=== PATIENT | female | born 1950 | race Caucasian/White ===

== ENCOUNTER → 2020-02-17 | Day surgery (SDC) | payer MEDICARE, BC ==
[~2020-02-17] MED LIST: Ketamine 200 MG/20 ML MDV IV ONE; Lactated Ringers 1,000 ML IV SCH; Propofol 200 MG/20 ML SDV IV ONE; fentaNYL 100 MCG/2 ML SDV IV ONE
[2020-02-17] MEDS: Lactated Ringers 1,000 ML IV SCH (07:59)
[2020-02-17 09:39] VITALS: BP 135/68; PULSE 59
--- NOTE | 2020-02-17 14:22 | OR ---
DATE OF OPERATION: 02/17/2020 PREOPERATIVE DIAGNOSIS: GASTROESOPHAGEAL REFLUX DISEASE WITH DYSPHAGIA. POSTOPERATIVE DIAGNOSIS: GASTROESOPHAGEAL REFLUX DISEASE WITH DYSPHAGIA. SURGEON: Jalen Sterling MD PROCEDURE: DIAGNOSTIC ESOPHAGOGASTRODUODENOSCOPY WITH BIOPSIES X1, TIKA. FORCEPS FUNDAL POLYP REMOVAL X2. ANESTHESIA: MAC. COMPLICATIONS: None. SPECIMEN: 1. Antral TIKA. 2. Antral biopsy x1. 3. Fundal polyps x2. FINDINGS: 1. Full-length EGD. 2. Numerous adenomatous polyps, fundus. 3. Small hiatal hernia with spontaneous GERD. 4. No distal esophagitis, stricturing, ulceration, or Tristan changes. 5. Small antral erosion. RECOMMENDATIONS: Medical followup with Sahra Raya PA-C, the patient's provider. INDICATIONS: The patient has been having some ongoing issues with reflux and occasionally some dysphagia in the lower chest. Elidia sent her for diagnostic EGD. DESCRIPTION OF PROCEDURE: The patient was prepped and draped, placed in a left lateral decubitus position. A lubricated Olympus gastroscope was inserted over a bit, advanced to cricopharyngeus and easily intubated into the esophagus. The esophageal lining was benign in its entire course. The Z-line was crisp and sharp at 35 cm. There was a small hiatal hernia present with spontaneous reflux, but no distal esophagitis, stricturing, ulceration, or Tristan changes. The scope was advanced into the stomach through the pylorus and into the second portion of the duodenum. This and the duodenal bulb were completely benign. The scope was brought back into the stomach and retroflexed. The upper fundus and cardia showed some adenomatous polyps. Otherwise, the only other abnormality was a small hiatal hernia seen from below. Upon straightening, the rest of the fundus had few more adenomatous polyps. The antrum had no obvious gastritis, but there was 1 small little erosion, likely associated with early polyp. I did do a biopsy and removed most of this in its entirety. A CLOtest was obtained. The scope was retroflexed and 2 of the adenomatous polyps were removed with forceps in their entirety. Air was then suctioned and scope removed without complication. LUIS/MICHAEL /[id number]
== END ==
LOC: CC.SDS 07:45
PROVIDERS: ATTEND Family Medicine
DX: K25.9 Gastric ulcer, unspecified as acute or chronic, without hemorrhage or perforation (principal); K31.7 Polyp of stomach and duodenum; K21.9 Gastro-esophageal reflux disease without esophagitis; K31.89 Other diseases of stomach and duodenum; J01.90 Acute sinusitis, unspecified; K44.9 Diaphragmatic hernia without obstruction or gangrene; Z88.7 Allergy status to serum and vaccine; Z88.8 Allergy status to other drugs, medicaments and biological substances
CPT/HCPCS: 43239; 87081; 88305; J2704; J3010; J7120

== ENCOUNTER 2024-04-21 06:04 | Day surgery (SDC) | payer MEDICARE, BC ==
[2024-04-21] MEDS ORDERED: Sodium Chloride 0.9% 10 ML Syringe FLUSH PRN (06:15)
[2024-04-21] MEDS: Cyclopentolate 1% Opth Soln 2 ML Bottle EYELF SCH (06:56)
[2024-04-21] MEDS: Tropicamide 1% Ophth Soln 3 ML Bottle EYELF SCH (07:01)
[2024-04-21] MEDS: Phenylephrine 2.5% Ophth Soln 2 ML Bot EYELF SCH (07:01)
[2024-04-21] MEDS ORDERED: Midazolam 1 MG/ML 2 ML SDV ONE (07:35)
[2024-04-21] MEDS: MOXIFLOXACIN PF in BSS 1 MG/ML VIAL IO SCH ×2 (07:40→08:32)
[2024-04-21] MEDS: Lidocaine 1% PF 2 ML SDV INJECT SCH (07:40)
[2024-04-21] MEDS: Tetracaine HCl/PF 0.5% 4 ML Bottle EYELF SCH (07:40)
[2024-04-21] MEDS: Povidone-Iodine 5% Sterile Ophth Soln 30 ML Bottle EYELF SCH (07:40)
[2024-04-21] MEDS: Brimonidine 0.2% Ophth Soln 5 ML Bottle EYELF SCH (07:40)
[2024-04-21] MEDS: Phenyleprhine/Ketorolac 4 ML Vial OP SCH (07:40)
[2024-04-21] MEDS: acetaZOLAMIDE 500 MG Cap.ER PO SCH (08:13)
[2024-04-21 11:09] VITALS: BP 112/57; PULSE 64
== END 2024-04-21 08:45 | disposition home or self-care (01) ==
LOC: CC.SDS 06:04
PROVIDERS: ATTEND Ophthalmology
DX: H26.8 Other specified cataract (principal); K21.9 Gastro-esophageal reflux disease without esophagitis; Z79.899 Other long term (current) drug therapy
CPT/HCPCS: 00142; 99100; A9270-GY; J1097; J2250; J3490; V2632

== ENCOUNTER 2024-06-27 06:12 | Day surgery (SDC) | payer MEDICARE, BC ==
[~2024-06-27 06:12] MED LIST changes: -Ketamine 200 MG/20 ML MDV IV ONE; -Lactated Ringers 1,000 ML IV SCH; -Propofol 200 MG/20 ML SDV IV ONE; +Sodium Chloride 0.9% 10 ML Syringe FLUSH PRN; -fentaNYL 100 MCG/2 ML SDV IV ONE
[2024-06-27] MEDS: Tropicamide 1% Ophth Soln 3 ML Bottle EYERT SCH (06:44)
[2024-06-27] MEDS: Phenylephrine 2.5% Ophth Soln 2 ML Bot EYERT SCH (06:46)
[2024-06-27] MEDS: Cyclopentolate 1% Opth Soln 2 ML Bottle EYERT SCH (06:47)
[2024-06-27] MEDS ORDERED: Midazolam 1 MG/ML 2 ML SDV ONE (07:40)
[2024-06-27] MEDS: Tetracaine HCl/PF 0.5% 4 ML Bottle EYERT SCH (07:49)
[2024-06-27] MEDS: Povidone-Iodine 5% Sterile Ophth Soln 30 ML Bottle EYERT SCH (07:49)
[2024-06-27] MEDS: MOXIFLOXACIN PF in BSS 1 MG/ML VIAL IO SCH (07:49)
[2024-06-27] MEDS: Lidocaine 1% PF 2 ML SDV INJECT SCH (07:49)
[2024-06-27] MEDS: Phenyleprhine/Ketorolac 4 ML Vial OP SCH (07:49)
[2024-06-27] MEDS: Brimonidine 0.2% Ophth Soln 5 ML Bottle EYERT ONE (07:59)
[2024-06-27] MEDS: acetaZOLAMIDE 500 MG Cap.ER PO SCH (08:12)
[2024-06-27 09:54] VITALS: BP 115/66; PULSE 53
== END 2024-06-27 08:45 | disposition home or self-care (01) ==
LOC: CC.SDS 06:12
PROVIDERS: ATTEND Ophthalmology
DX: H26.8 Other specified cataract (principal); E78.00 Pure hypercholesterolemia, unspecified; K21.9 Gastro-esophageal reflux disease without esophagitis; I10 Essential (primary) hypertension
CPT/HCPCS: 00142; 99100; A9270-GY; J1097; J2250; J3490; V2632